=== PATIENT | female | born 1955 | race Caucasian/White ===

== ENCOUNTER → 2019-05-13 08:30 | Outpatient (CLI) | payer MEDICARE, SELFPAY ==
--- NOTE | ~2019-05-13 | MR_ITS ---
EXAMINATION: MR brain/brain stem wo con EXAM DATE: 05/13/2019 09:15 INDICATION: Dizziness, syncope. Symptoms since March 10, 2019. TECHNIQUE: Magnetic resonance imaging (MRI) of the brain/brain stem obtained without contrast. Sagitt al T1, axial diffusion, gradient echo (T2*), T1, T2, FLAIR sequences obtained. There is no prior st udy for comparison. FINDINGS: There are no areas of restricted diffusion to suggest acute infarction. There is no acute hemorrhage seen on the T2*, a hemosiderin sensitive sequence. No intraparenchymal brain mass lesion. There is mild to moderate periventricular and subcortical T2/FLAIR signal hyperintensity, nonspecifi c but probably related to small vessel ischemic disease (microangiopathy). There is mild prominence of the sulci and ventricles related to cerebral atrophy. There are no extra-axial collections. Fl ow voids are seen in the cerebral arteries on the T2-weighted sequences consistent with their expecte d patency. The orbits are unremarkable. Soft tissue is unremarkable. IMPRESSION: 1. No acute intracranial findings. 2. Chronic age related findings. Reviewed, dictated and finalized at location B. TSEEING GUIDE
== END ==
PROVIDERS: PCP Internal Medicine; Visit Provider Internal Medicine
DX: R42 Dizziness and giddiness (principal)
CPT/HCPCS: 70551

== ENCOUNTER 2024-02-15 13:30 | Outpatient (CLI) | payer MEDICARE, SELFPAY ==
--- NOTE | 2024-02-22 19:47 | WPDPFTINT ---
PFT Procedure Performed PFT Procedure Performed Spirometry with Pre/Post Bronchodilator Plethysmography (Lung Vol) Diffusing Cap (DLCO) Flow Vol Loop PFT Interpretation DOS: 02/14/2014 REQUESTING: Anderson Haq MD; primary care- Octavio Encarnacion MD REASON FOR TESTING: COPD PULMONARY FUNCTION TESTS Results are reliable and reproducible. Repeatability of spirometry FEV1 maneuver pre and post bronchodilator is Grade A. Spirometry: The pre-bronchodilator FEV1 is 1.64 L, 78%. The pre-bronchodilator FVC is 2.74 L, 101%. The FEV1/FVC ratio is 60%, below normal, consistent with airflow obstruction. After bronchodilator, the FEV1 is 1.46 L, 69%, -11%. The FVC is 2.74 L, 101%, unchanged. The FEV1/FVC ratio is 53% decreased. Lung volumes: The total lung capacity is 4.79 L, 98%. The residual volume is 2.05 L, 95 per. The RV/TLC is 43%. Airway resistance is increased. Diffusion: DLCO is 9.5, 48%, decreased. The DLCO/VA is 2.92, 68%, decreased. Flow volume loop: The flow volume loop is significant for a knee in the expiratory limb, a variant of normal. The expiratory limb does not have a spike in the first second of exhalation, without coving of the expiratory limb. IMPRESSION: There is a mild obstructive ventilatory impairment without response to bronchodilator, normal lung volume with mild diffusion impairment. Lack of response to bronchodilator should not preclude use of clinically indicated. No prior studies for comparison. Fozia Paez MD
== END 2024-02-15 13:31 | disposition home or self-care (01) ==
LOC: ANHPFT 13:34
PROVIDERS: PCP Internal Medicine; Visit Provider Internal Medicine Pulmonary Disease
DX: J44.9 Chronic obstructive pulmonary disease, unspecified (principal)
CPT/HCPCS: 94060; 94726; 94729

== ENCOUNTER 2024-04-25 15:39 | Outpatient (CLI) | payer MEDICARE, SELFPAY ==
--- NOTE | ~2024-04-25 | MM_ITS ---
EXAMINATION: MM screening cynthia BI w [place] HISTORY: Screening TECHNIQUE: Craniocaudal and mediolateral oblique 3-D tomosynthesis images were obtained and synthetic 2-D images were generated. CAD analysis was submitted and interpreted. COMPARISON: No prior mammogram is available for comparison at this institution. BREAST PARENCHYMAL COMPOSITION: Dense: The breasts are extremely dense, which lowers the sensitivity of mammography. FINDINGS: There is no evidence of suspicious mass, calcification, or architectural distortion to sugg est malignancy in either breast. There has been no suspicious interval change. IMPRESSION: 1. No mammographic evidence of malignancy. 2. Recommend routine screening mammography in one year. BI-RADS Category 1: Negative Reviewed, dictated and finalized at location B. TROCARDIOGRAPHIC TECHNICIAN
== END 2024-04-25 15:40 | disposition home or self-care (01) ==
LOC: MICIMG 15:40
PROVIDERS: PCP Internal Medicine; Visit Provider Internal Medicine
DX: Z12.31 Encounter for screening mammogram for malignant neoplasm of breast (principal)
CPT/HCPCS: 77063; 77067

== ENCOUNTER 2025-02-01 08:01 | Outpatient (CLI) | payer MEDICARE, SELFPAY ==
--- NOTE | ~2025-02-01 | CT_ITS ---
EXAMINATION:CT diagnostic chest wo con DATE: 02/01/2025 08:22 INDICATION: Abnormal test TECHNIQUE: Computed tomography (CT) of the chest was performed without intravenous contrast. The dose-length product (DLP) was 136.99 mGy-cm. COMPARISON: None. FINDINGS: 1.1 x 1.0 cm spiculated cystic/cavitary right apical nodule image 23 series 4. No other nodules lesions seen. 4 mm nodule right lower lobe image 77 series 4. Moderate to severe centrilobular emphysematous changes in the mid and upper lung [place]. Small spiculated more fibrotic appearing focus in the left lung base seen on coronal image 63 series 601. No acute process seen. Heart and great vessels appear normal size with no significant pericardial effusion or bulky lymphadenopathy. Central and large airways appear patent. The bones appear intact. No acute process seen in the visualized portions of the upper abdomen. IMPRESSION: Spiculated air cystic/cavitated nodule measuring 1.1 x 1.0 cm in the right apical region. Correlate with PET CT or short interval follow-up chest CT in 3 months. Reviewed, dictated and finalized at location A. RVISOR HARVESTING IMPRESSION: Spiculated air cystic/cavitated nodule measuring 1.1 x 1.0 cm in t he right apical region. Correlate with PET CT or short interval follow-up chest CT in 3 months.
== END 2025-02-01 08:02 | disposition home or self-care (01) ==
LOC: MICIMG 08:03
PROVIDERS: PCP Internal Medicine; Visit Provider Internal Medicine Pulmonary Disease
DX: R91.8 Other nonspecific abnormal finding of lung field (principal)
CPT/HCPCS: 71250